=== PATIENT | female | born 1945 | race Caucasian/White ===

== ENCOUNTER 2018-07-02 16:42 | Inpatient (IN) | payer OTHER, MEDICAID ==
[~2018-07-02] VITALS: Ht 154.9 cm; Wt 67.6 kg
--- NOTE | 2018-07-02 18:02 | NUR ---
Direct admission note From home alert/oriented x4 ambulatory with a diagnosis of URINARY TRACT INFECTION, oriented to room , safety , verbalized understanding. Addendum: 07/02/18 at 1901 by Natty Dean RN Patient has episode of forgetfulness,oriented to herself , keep on saying shes in the hospital because of the granddaughter.
--- NOTE | 2018-07-02 18:15 | NUR ---
NOTES PATIENT SITTING ON BED. PATIENT IS VERY CONFUSED AND FORGETFUL. NO ACUTE DISTRESS. NO SOB. RESPIRATION EVEN AND UNLABORED. SKIN WARM AND DRY TO TOUCH. PATIENT CONT TO WANDER IN ROOM STATING SHE'S HERE FOR HER GRANDDAUGHTER. CONT TO REORIENT PATIENT TO ROOM, BED AND CALL LIGHT. GRAND DAUGHTER AT BEDSIDE. ALL NEEDS MET. CALL LIGHT IN REACH. CONT TO MONITOR.
[2018-07-02 18:22] VITALS: BP_SYST 145
[2018-07-02] MEDS ORDERED: DICL50TA7 PO (18:36)
[2018-07-02] MEDS ORDERED: OXYB10TA4 PO (18:36)
[2018-07-02] MEDS ORDERED: PRO10 PO (18:36)
[2018-07-02] MEDS ORDERED: DOCU-144 PO (18:36)
[2018-07-02] MEDS ORDERED: FOLI-43 PO (18:36)
[2018-07-02] MEDS ORDERED: ACET-73 PO (18:36)
[2018-07-02] MEDS ORDERED: MEMA10TA PO (18:36)
[2018-07-02] MEDS ORDERED: CALCIUM/D3 PO (18:36)
[2018-07-02] MEDS ORDERED: LORA-258 PO (18:36)
--- NOTE | 2018-07-02 18:44 | NUR ---
DR.KADHIUM STARR, ADMIT NURSE, SPOKE TO AND MADE AWARE OF PATIENT'S ADMIT. WILL COME SEE PATIENT.
--- NOTE | 2018-07-02 18:55 | NUR ---
CLOSING NOTE PATIENT IS CONFUSED AND TRIES TO WANDER OFF FROM ROOM. GRANDDAUGHTER STATED THAT PATIENT USE TO ISOLATE HERSELF IN HER ROOM AWAY FROM OTHERS, BUT NOW THE FAMILY MAKES SURE THERE IS ALWAYS SOMEONE WITH THE PATIENT AT ALL TIMES. PATIENT DENIES ATTEMPTING TO INJURE OR HARM SELF IN ANY WAY. CHARGE NURSE MADE AWARE. GRAND DAUGHTER AGREES TO STAY TONIGHT TO HELP PATIENT COOPERATE WITH STAFF. ALL NEEDS MET. CALL LIGHT IN REACH. WILL ENDORSE TO ONCOMING NURSE.
[2018-07-02 19:19] LABS: ANION GAP 6 (5-15); BASOPHILS # (AUTO) 0.1 K/uL (0.0-0.2); BASOPHILS % (AUTO) 0.8 % (0.0-2.0); CALCIUM 8.9 mg/dL (8.4-11.0); CHLORIDE 106 mmol/L (98-107); CREATININE 0.96 mg/dL (0.55-1.30); EOSINOPHILS # (AUTO) 0.2 K/uL (0.0-0.4); EOSINOPHILS % (AUTO) 2.4 % (0.0-4.0); GLUCOSE 99 mg/dL (70-99); HEMATOCRIT 38.5 % (36-48); HEMOGLOBIN 12.9 g/dL (12.0-16.0); LYMPHOCYTES # (AUTO) 2.5 K/uL (1.0-5.5); LYMPHOCYTES % (AUTO) 31.3 % (20.5-51.5); MEAN CORPUSCULAR HEMOGLOBIN 28 pg (27-31); MEAN CORPUSCULAR HGB CONC 34 % (32-36); MEAN CORPUSCULAR VOLUME 84 fL (79.0-98.0); MONOCYTES # (AUTO) 0.7 K/uL (0.0-1.0); MONOCYTES % (AUTO) 9.1 % (1.7-9.3); NEUTROPHILS # (AUTO) 4.4 K/uL (1.8-7.7); NEUTROPHILS % (AUTO) 56.4 % (40.0-70.0); PLATELET COUNT (AUTO) 281 K/uL (130-430); POTASSIUM 3.8 mmol/L (3.5-5.1); RED BLOOD CELL COUNT(AUTO) 4.59 MIL/uL (4.2-6.2); RED CELL DISTRIBUTION WIDTH 13.2 % (9.0-15.0); SODIUM SERUM 139 mmol/L (136-145); UREA NITROGEN, BLOOD 21 mg/dL (8-21); WHITE BLOOD COUNT (AUTO) 7.9 K/uL (4.8-10.8)
[2018-07-02 19:25] LABS: ALANINE AMINOTRANSFERASE 52 U/L (12-78); ALBUMIN 3.5 g/dL (3.4-4.8); ASPARTATE AMINOTRANSFERASE 36 U/L (10-37); TOTAL BILIRUBIN 0.6 mg/dL (0.0-1.0)
--- NOTE | 2018-07-02 19:45 | NUR ---
OPENING NOTE RECEIVED PT AND REPORT FROM DAY SHIFT NURSE. PT IS SITTING UP AWAKE IN BED. PT ON ROOM AIR. NO IV IN PLACE. GRAND DAUGHTER AT BEDSIDE. PT IS CONFUSED AT THIS TIME. FALL AND SAFETY PRECAUTIONS IN PLACE. BED LOCKED IN LOWEST POSITION. BED ALARM ON. CALL LIGHT WITH PT. WILL CONTINUE TO MONITOR.
[2018-07-02 20:00] VITALS: BP_SYST 145
--- NOTE | 2018-07-02 20:50 | NUR ---
ROUNDING NOTE PT STANDING, ATTEMPTING TO LEAVE. FAMILY AND NURSE REORIENTING PT. VITAL SIGNS OBTAINED. PROVIDED PT WITH BEVERAGE. ENCOURAGE PT AND FAMILY TO OBTAIN URINE SPECIMEN. PREVIOUS SPECIMEN WAS NOT OBTAINED IN HAT. WILL RE ATTEMPT.
[2018-07-02 22:08] LABS: BILIRUBIN,URINE NEGATIVE (NEGATIVE); BLOOD, URINE NEGATIVE (NEGATIVE); CLARITY/URINE CLEAR (CLEAR); COLOR,URINE YELLOW (YELLOW); GLUCOSE,URINE NEGATIVE (NEGATIVE); KETONES,URINE NEGATIVE (NEGATIVE); LEUKOCYTE ESTERASE ,URINE NEGATIVE (NEGATIVE); NITRITE, URINE NEGATIVE (NEGATIVE); PH,URINE 5.5 (5.0-8.0); PROTEIN URINE NEGATIVE (NEGATIVE); UROBILINOGEN,URINE 0.2 (0.2-1.0)
[2018-07-02] MEDS ORDERED: CEFEPIME 1 GM/VIAL (MAXIPIME) ONE (23:03)
[2018-07-02] MEDS: KCL 20 mEq in 0.45% NS 1000 mL 1,000 ML IV SCH (23:04)
[2018-07-02] MEDS: CEFEPIME 1 GM in D5W 50 ML IV SCH (23:04)
--- NOTE | 2018-07-02 23:04 | NUR ---
MEDICATION ADMINISTRATION ADMINISTERED MEDICATION PER ORDERS. PT RESTING IN BED. FAMILY AT BEDSIDE. BED ALARM ON. CALL LIGHT WITH PT.
[2018-07-02] MEDS: NORMAL SALINE 5 ML DISP.SYRIN IVF SCH (23:05)
[2018-07-03] MEDS ORDERED: ACETAMINOPHEN 500 MG TABLET PO SCH
[2018-07-03 00:36] VITALS: BP_SYST 156
--- NOTE | 2018-07-03 01:40 | NUR ---
ROUNDING NOTE PT RESTING IN BED. FAMILY AT BEDSIDE. BED ALARM ON. NO S/S OF DISTRESS OR DISCOMFORT. CALL LIGHT WITH PT. WILL CONTINUE TO MONITOR.
--- NOTE | 2018-07-03 02:40 | NUR ---
ROUNDING NOTE PT IS SLEEPING IN BED. NO S/S OF ACUTE DISTRESS. FAMILY IS AT BEDSIDE. WILL CONTINUE TO MONITOR.
--- NOTE | 2018-07-03 04:15 | NUR ---
ROUNDING NOTE PT RESTING IN BED. NO S/S OF ACUTE DISTRESS. WILL CONTINUE TO MONITOR. FAMILY REMAINS AT BEDSIDE.
[2018-07-03] MEDS: NORMAL SALINE 5 ML DISP.SYRIN IVF SCH ×3 (05:56→21:07)
--- NOTE | 2018-07-03 05:56 | NUR ---
ROUNDING NOTE PT RESTING IN BED. NO NEEDS AT THIS TIME. INFORMED PT ABOUT BREAKFAST. RECEIVED NEW ID BAND FOR PT. WILL CONTINUE TO MONITOR.
--- NOTE | 2018-07-03 06:38 | NUR ---
CLOSING NOTE WILL ENDORSE CARE AND REPORT TO DAY SHIFT NURSE. PT IS RESTING IN BED AT THIS TIME. NO S/S OF DISTRESS OR DISCOMFORT. ALL NEEDS MET THROUGHOUT SHIFT. PT IN STABLE CONDITION. NO SIGNIFICANT CHANGES TO NOTE DURING SHIFT. CALL LIGHT WITH PT. FAMILY AT BEDSIDE. WILL CONTINUE TO MONITOR.
--- NOTE | 2018-07-03 07:41 | NUR ---
PT GIVEN MOTRIN FOR PAIN OF 02/20. Addendum: 07/03/18 at 1243 by Warner Delaney RN PLEASE DISREGARD THIS PT'S NOTES: WRONG ENTRY.
--- NOTE | 2018-07-03 07:58 | NUR ---
OPENING NOTES, SEEN PT IN ROOM, PT JUST AMBULATED FROM BATHROOM WITH THE IV POLE. PT'S GRANDDAUGHTER WITH PT. PT DENIES PAIN, NO SOB, NO RESP DISTRESS. PT ASSISTED TO BED, CALL LIGHT IN REACH, BED IN LOW POSITION. WILL CONT TO MNITOR,
[2018-07-03 08:00] VITALS: BP_SYST 102
[2018-07-03] MEDS ORDERED: OXYBUTYNIN CHLORIDE 5 MG XL TAB PO SCH (09:00)
[2018-07-03] MEDS: DOCUSATE SODIUM 100 MG/10 ML UDC PO SCH (09:20)
[2018-07-03] MEDS: FLUoxetine HCL 10 MG CAPSULE (PROzac) PO SCH (09:20)
[2018-07-03] MEDS: MEMANTINE HCL 5 MG TABLET PO SCH (09:21)
[2018-07-03] MEDS: ENOXAPARIN SODIUM 40 MG/0.4 ML SYRINGE SUBCUT SCH (09:21)
[2018-07-03] MEDS: FOLIC ACID 1 MG TABLET PO SCH (09:21)
[2018-07-03] MEDS ORDERED: OXYBUTYNIN CHLORIDE 5 MG TABLET PO ONE (09:45)
[2018-07-03] MEDS: CEFEPIME 1 GM in D5W 50 ML IV SCH ×2 (10:41→20:44)
[2018-07-03 12:22] VITALS: BP_SYST 156
--- NOTE | 2018-07-03 12:41 | NUR ---
PT'S IV SITE SWOLLEN . IV ACCESS REMOVED. WILL START NEW IV. WARM COMPRESS APPLIED.
[2018-07-03] MEDS: KCL 20 mEq in 0.45% NS 1000 mL 1,000 ML IV SCH (16:01)
--- NOTE | 2018-07-03 16:14 | NUR ---
PT IN BED, PT RIPPING HER IV OFF AGAIN. TOLD PT NOT TO PULL OUT THE IV BECAUSE SHE NEEDS THE IF FLUIDS AND WE NEED IT FOR IV ANTIBIOTICS. PT'S GRAND DAUGHTER AT BED SIDE. WRAPPED IV ACCESS AND IV SITE WITH USHA WRAP.
[2018-07-03 16:33] VITALS: BP_SYST 119
--- NOTE | 2018-07-03 18:37 | NUR ---
CLOSING NOTES, PT HAS BEEN STABLE THE WHOLE SHIFT, PT AAOX2 WITH PERIODS OF CONFUSION. GRANSD DAUGHTER STAYED WITH PATIENT AND HAS BEEN HELPFUL TO PATIENT. IV ACCESS ON R. FA INTACT AND PATENT IV FLUIDS INFUSING WELL. PT HAS NOT COMPLAIN OF PAIN, NO SOB, NO RESP DISTRESS. WILL ENDORSE TO NIGHT RN.
[2018-07-03 19:20] VITALS: BP_SYST 140
--- NOTE | 2018-07-03 19:20 | NUR ---
OPENING NOTE RECEIVED PT ENDORSEMENT REPORT FROM DAY SHIFT NURSE VLADISLAV AT BEDSIDE. PT IS AOX1, PT RESTING IN BED WITH EYES OPEN. PT'S GRANDDAUGHTER AT BEDSIDE. CHEST RISE EVEN AND UNLABORED. NO RESPIRATORY DISTRESS NOTED. NO COMPLAINTS OF PAIN AT THIS TIME. PT'S IV ON RIGHT FA 22G, IV DRY AND INTACT. IVF INFUSING WELL. PT ABLE TO AMBULATE WITH ASSISTANCE, PT AND FAMILY EDUCATED ON SAFETY, PT VERBALIZED UNDERSTANDING. ORIENTED PT TO HOSPITAL ROOM, PT VERBALIZED UNDERSTANDING. INSTRUCTED PT AND FAMILY HOW TO USE CALL LIGHT AND ROOM PHONE. INSTRUCTED PT AND FAMILY TO USE CALL LIGHT TO CALL FOR ASSISTANCE, PT AND FAMILY VERBALIZED UNDERSTANDING. SAFETY MEASURES IN PLACE, PT'S BED IN LOWEST POSITION, BED BRAKES ON, SIDE RAILS UP X3, BED ALARM ON, CALL LIGHT WITHIN REACH, BED SIDE TABLE WITHIN REACH. NO NEEDS AT THIS TIME. WILL CONTINUE WITH POC.
[2018-07-03] MEDS: OXYBUTYNIN CHLORIDE 5 MG TABLET PO SCH (20:44)
--- NOTE | 2018-07-03 20:50 | NUR ---
RN ROUNDS PT RESTING IN BED WITH EYES OPEN. PT'S GRANDDAUGHTER AT BEDSIDE. CHEST RISE EVEN AND UNLABORED. NO RESPIRATORY DISTRESS NOTED. NO COMPLAINTS OF PAIN AT THIS TIME. IVF INFUSING WELL. VITAL SIGNS WNL. SCHEDULED MEDICATIONS ADMINISTERED ORDERED. PT TOLERATED MEDICATIONS WELL. NO OTHER NEEDS AT THIS TIME. SAFETY MEASURES IN PLACE, PT'S BED IN LOWEST POSITION, BED BRAKES ON, SIDE RAILS UP X3, BED ALARM ON, CALL LIGHT WITHIN REACH, BED SIDE TABLE WITHIN REACH. NO NEEDS AT THIS TIME. WILL CONTINUE WITH POC.
--- NOTE | 2018-07-03 21:10 | NUR ---
RN ROUNDS PT RESTING IN BED WITH EYES OPEN. PT'S GRANDDAUGHTER AT BEDSIDE. CHEST RISE EVEN AND UNLABORED. NO RESPIRATORY DISTRESS NOTED. NO COMPLAINTS OF PAIN AT THIS TIME. IVF INFUSING WELL. SALINE FLUSH 5 ML ADMINISTERED ORDERED. PT TOLERATED WELL. SAFETY MEASURES IN PLACE, PT'S BED IN LOWEST POSITION, BED BRAKES ON, SIDE RAILS UP X3, BED ALARM ON, CALL LIGHT WITHIN REACH, BED SIDE TABLE WITHIN REACH. NO NEEDS AT THIS TIME. WILL CONTINUE WITH POC.
--- NOTE | 2018-07-03 23:45 | NUR ---
RN ROUNDS PT RESTING IN BED WITH EYES OPEN. PT'S GRANDDAUGHTER AT BEDSIDE. CHEST RISE EVEN AND UNLABORED. NO RESPIRATORY DISTRESS NOTED. NO COMPLAINTS OF PAIN AT THIS TIME. IVF INFUSING WELL. SAFETY MEASURES IN PLACE, PT'S BED IN LOWEST POSITION, BED BRAKES ON, SIDE RAILS UP X3, BED ALARM ON, CALL LIGHT WITHIN REACH, BED SIDE TABLE WITHIN REACH. NO NEEDS AT THIS TIME. WILL CONTINUE WITH POC.
[2018-07-04 00:18] VITALS: BP_SYST 169
--- NOTE | 2018-07-04 01:42 | NUR ---
RN ROUNDS PT RESTING IN BED WITH EYES CLOSED. PT'S GRANDDAUGHTER AT BEDSIDE. CHEST RISE EVEN AND UNLABORED. NO RESPIRATORY DISTRESS NOTED. NO COMPLAINTS OF PAIN AT THIS TIME. NO S/S OF PAIN NOTED. IVF INFUSING WELL. SAFETY MEASURES IN PLACE, PT'S BED IN LOWEST POSITION, BED BRAKES ON, SIDE RAILS UP X3, BED ALARM ON, CALL LIGHT WITHIN REACH, BED SIDE TABLE WITHIN REACH. NO NEEDS AT THIS TIME. WILL CONTINUE WITH POC.
[2018-07-04] MEDS: NORMAL SALINE 5 ML DISP.SYRIN IVF SCH ×3 (05:40→21:09)
--- NOTE | 2018-07-04 06:05 | NUR ---
RN ROUNDS PT RESTING IN BED WITH EYES CLOSED. PT'S GRANDDAUGHTER AT BEDSIDE. CHEST RISE EVEN AND UNLABORED. NO RESPIRATORY DISTRESS NOTED. PT EASILY AWAKEN. NO COMPLAINTS OF PAIN AT THIS TIME. NO S/S OF PAIN NOTED. IVF INFUSING WELL. SCHEDULED SALINE FLUSH ADMINISTERED ORDERED PT TOLERATED WELL. SAFETY MEASURES IN PLACE, PT'S BED IN LOWEST POSITION, BED BRAKES ON, SIDE RAILS UP X3, BED ALARM ON, CALL LIGHT WITHIN REACH, BED SIDE TABLE WITHIN REACH. NO NEEDS AT THIS TIME. WILL CONTINUE WITH POC.
--- NOTE | 2018-07-04 06:43 | NUR ---
CLOSING NOTE WILL ENDORSE PT REPORT TO DAY SHIFT NURSE AT BEDSIDE. PT IS AOX1, PT RESTING IN BED WITH EYES CLOSED, PT EASILY AWAKEN. PT'S GRANDDAUGHTER AT BEDSIDE. CHEST RISE EVEN AND UNLABORED. NO RESPIRATORY DISTRESS NOTED THROUGHOUT SHIFT. NO COMPLAINTS OF PAIN THROUGHOUT SHIFT OR AT THIS TIME. IVF INFUSING WELL. PT ABLE TO AMBULATE WITH ASSISTANCE, PT AND FAMILY EDUCATED ON SAFETY, PT AND FAMILY VERBALIZED UNDERSTANDING. PT'S NEEDS MET THROUGHOUT SHIFT. ALL SCHEDULED MEDICATIONS ADMINISTERED ORDERED. NO NEEDS AT THIS TIME. SAFETY MEASURES IN PLACE, PT'S BED IN LOWEST POSITION, BED BRAKES ON, SIDE RAILS UP X3, BED ALARM ON, CALL LIGHT WITHIN REACH, BED SIDE TABLE WITHIN REACH. NO NEEDS AT THIS TIME. WILL CONTINUE WITH POC.
--- NOTE | 2018-07-04 07:50 | NUR ---
OPENING NOTES, PT IN BED, EATING BREAKFAST WITH GRAND DAUGHTER AT BEDSIDE, DENIES PAIN, NO SOB, NO RESP DISTRESS. PT IS AFEBRILE. PT IS AAOX1. REORIENTED PT TO DATE, PLACE AND EVENTS. PT HAS NO IV ACCESS AT THIS TIME, PT PULLED OUT IV AT THE VERY START OF THE SHIFT. SAFETY PRECAUTION IN PLACE , CALL LIGHT IN REACH, BED IN LOW POSITION. ENCOURAGED PT TO CALL FOR ASSIST AND PAIN MEDS AND ANY CONCERNS. WILL CONT TO MONITOR.
[2018-07-04 08:02] VITALS: BP_SYST 149
[2018-07-04] MEDS: FLUoxetine HCL 10 MG CAPSULE (PROzac) PO SCH (09:43)
[2018-07-04] MEDS: FOLIC ACID 1 MG TABLET PO SCH (09:43)
[2018-07-04] MEDS: OXYBUTYNIN CHLORIDE 5 MG TABLET PO SCH ×2 (09:45→20:29)
[2018-07-04] MEDS: DOCUSATE SODIUM 100 MG/10 ML UDC PO SCH (09:45)
[2018-07-04] MEDS: MEMANTINE HCL 5 MG TABLET PO SCH (09:49)
[2018-07-04] MEDS: ENOXAPARIN SODIUM 40 MG/0.4 ML SYRINGE SUBCUT SCH (09:50)
[2018-07-04] MEDS: CEFEPIME 1 GM in D5W 50 ML IV SCH ×2 (10:44→20:29)
[2018-07-04] MEDS: KCL 20 mEq in 0.45% NS 1000 mL 1,000 ML IV SCH (11:07)
[2018-07-04 12:08] VITALS: BP_SYST 129
--- NOTE | 2018-07-04 13:13 | NUR ---
Patient was seen for Initial Evaluation. She is safe to ambulate with the nursing staff ad ning with stand by assistance for safety. No further skilled Physical Therapy is needed at this time. Patient's caregiver expresses being overwhelmed with caring for the patient by herself. She said that she has received SNF/Board and Care recommendation.
--- NOTE | 2018-07-04 16:06 | NUR ---
DC Planning: Per Dr. Paz's recommendation to transfer pt. to [facility] unit. -- TITI Schmidt made aware.
[2018-07-04 16:23] VITALS: BP_SYST 136
--- NOTE | 2018-07-04 16:33 | NUR ---
Discharge Planning: DIRECTOR HAIR has faxed pt's information to [facility] ( [phone]) for review for SNF placement.
--- NOTE | 2018-07-04 17:00 | NUR ---
[facility] CALLED AND PT WILL HAVE AVAILABLE ROOM IN AM.
--- NOTE | 2018-07-04 19:22 | NUR ---
CLOSING NOTES, ENDORSED TO NIGHT RN. WHITE. PT HAS BEEN STABLE , ALL MEDS OFFERED AND TAKEN BY PT. PT STILL CONFUSED AND PULLED OUT IV X1 TODAY. NEW IV STARTED.
--- NOTE | 2018-07-04 19:30 | NUR ---
OPENING NOTE RECEIVED PT AND REPORT FROM DAY SHIFT. PT IS SITTING UP AWAKE IN CHAIR. PT SPEAKS [place]EN[place] AND IS ABLE TO VERBALIZE NEEDS. PT DENIES PAIN AT THIS TIME. FAMILY AT BEDSIDE. IV IS INTACT AND RUNNING IVF. PT ON ROOM AIR. FALL AND SAFETY PRECAUTIONS IN PLACE. BED LOCKED IN LOWEST POSITION. BED ALARM ON. CALL LIGHT WITH PT. WILL CONTINUE TO MONITOR
[2018-07-04 20:00] VITALS: BP_SYST 157
--- NOTE | 2018-07-04 20:29 | NUR ---
MEDICATION ADMINISTRATION/ REFUSAL/DO NOT DISTURB ADMINISTERED MEDICATION PER ORDERS. FAMILY STATES THEY DO NOT WANT TO BE DISTURBED FOR THE REST OF THE NIGHT. AND FAMILY REFUSES IVF AND VITALS FOR REMAINDER OF NIGHT. REFUSAL DESPITE EDUCATION GIVEN. WILL CONTINUE TO MONITOR PT.
--- NOTE | 2018-07-04 22:45 | NUR ---
ROUNDING NOTE PT IS RESTING IN BED. NO S/S OF DISTRESS. FAMILY REMAINS AT BEDSIDE. BED ALARM IS ON. WILL CONTINUE TO MONITOR.
--- NOTE | 2018-07-05 00:15 | NUR ---
ROUNDING NOTE PT SLEEPING. NO S/S OF ACUTE DISTRESS. CALL LIGHT WITH PT. FAMILY AT BEDSIDE. WILL CONTINUE TO MONITOR.
--- NOTE | 2018-07-05 01:56 | NUR ---
ROUNDING NOTE PT SLEEPING. NO S/S OF DISTRESS OR DISCOMFORT. FAMILY SLEEPING AT BEDSIDE. BED ALARM ON. CALL LIGHT WITH PT.
--- NOTE | 2018-07-05 03:23 | NUR ---
ROUNDING NOTE PT SLEEPING AT THIS TIME. NO S/S OF DISTRESS OR DISCOMFORT. CALL LIGHT WITH PT. FAMILY AT BEDSIDE.
[2018-07-05] MEDS: KCL 20 mEq in 0.45% NS 1000 mL 1,000 ML IV SCH (04:20)
--- NOTE | 2018-07-05 05:08 | NUR ---
ROUNDING NOTE PT SLEEPING IN BED. FAMILY AT BEDSIDE. NO S/S OF DISTRESS OR DISCOMFORT. CALL LIGHT WITH PT. WILL CONTINUE TO MONITOR.
[2018-07-05] MEDS: NORMAL SALINE 5 ML DISP.SYRIN IVF SCH (05:14)
--- NOTE | 2018-07-05 06:20 | NUR ---
IV PULLED OUT/ REFUSAL PT HAS PULLED OUT IV. GRAND DAUGHTER IS REFUSING INSERTION ON ANOTHER IV AT THIS TIME. PATIENT HAS URINATED AND GRAND DAUGHTER ALSO STATES THAT PATIENT CAN BE CHANGED LATER AND NOT AT THIS TIME. WILL CONTINUE TO MONITOR.
--- NOTE | 2018-07-05 06:37 | NUR ---
CLOSING NOTE WILL ENDORSE CARE AND REPORT TO DAY SHIFT NURSE. PT IS AWAKE IN BED AND RESTING. NO PAIN AT THIS TIME. GRAND DAUGHTER AT BEDSIDE. ALL NEEDS MET THROUGHOUT SHIFT. PT IN STABLE CONDITION. WILL ENDORSE ANY CHANGES DURING SHIFT, WELL REFUSALS BY GRAND DAUGHTER. CALL LIGHT WITH PT. WILL CONTINUE TO MONITOR.
--- NOTE | 2018-07-05 07:25 | NUR ---
Opening note pt and report received from NOC shift RN, no s/s of SOB or distress, no c/o pain or discomfort. Pt w/o IV access at this time, pt and family refused IV last night. Bed and safety check completed. Bed in loc locked position with bed alarm on and call light within reach. Pt AAOx2. Family at bedside and agrees to use call light for assistance.
[2018-07-05 08:05] VITALS: BP_SYST 142
[2018-07-05] MEDS: OXYBUTYNIN CHLORIDE 5 MG TABLET PO SCH (08:27)
[2018-07-05] MEDS: MEMANTINE HCL 5 MG TABLET PO SCH (08:27)
[2018-07-05] MEDS: DOCUSATE SODIUM 100 MG/10 ML UDC PO SCH (08:27)
[2018-07-05] MEDS: FOLIC ACID 1 MG TABLET PO SCH (08:27)
[2018-07-05] MEDS: FLUoxetine HCL 10 MG CAPSULE (PROzac) PO SCH (08:27)
[2018-07-05] MEDS: ENOXAPARIN SODIUM 40 MG/0.4 ML SYRINGE SUBCUT SCH (08:28)
[2018-07-05] MEDS: CEFEPIME 1 GM in D5W 50 ML IV SCH (08:49)
--- NOTE | 2018-07-05 10:00 | NUR ---
Rounding Pt resting in bed, talking with family at bedside, IV restarted and IV fluids infusing. Bed alarm on and call light within reach
--- NOTE | 2018-07-05 10:02 | NUR ---
Nutrition Update Saleem Scale 18 noted. Pt admitted for UTI. Diet: mechanical soft BMI: 28.2 kg/m2 RD to follow per nutrition care standards.
--- NOTE | 2018-07-05 12:00 | NUR ---
Rounding pt eating lunch with family at bedside. No complaints or issues at this time, awaiting placement at SNF for possible discharge later today.
[2018-07-05 12:02] VITALS: BP_SYST 178
[2018-07-05] MEDS ORDERED: LOSARTAN POTASSIUM 50 MG TABLET (COZAAR) PO ONE (12:30)
--- NOTE | 2018-07-05 14:00 | NUR ---
Rounding Pt resting in bed, family remains at bed side, no s/s of SOB or distress, safety and bed check completed
[2018-07-05 15:37] VITALS: BP_SYST 140
--- NOTE | 2018-07-05 16:30 | NUR ---
Rounding Reviewed discharge plan with family and pt, family signed transfer authorization and awaiting transfer at [id number]
--- NOTE | 2018-07-05 17:30 | NUR ---
Discharge note Pt ambulatory, w/ no s/s of SOB or distress, no c/o pain or discomfort. Pt remains AAOx2, confused about time and event. Family remains with her at bedside. Report given to Payton CLARK at [facility]. Reviewed discharge packet and transfer authorization, both signed by pt grand daughter. IV removed per request of receiving facility.
[2018-07-06] MEDS ORDERED: LOSARTAN POTASSIUM 50 MG TABLET (COZAAR) PO SCH (09:00)
== END 2018-07-05 17:15 | DRG 689 ==
LOC: SMU 17:57
PROVIDERS: ADMIT Family Medicine; ATTEND Family Medicine
DX: N39.0 Urinary tract infection, site not specified (principal); G93.41 Metabolic encephalopathy; I10 Essential (primary) hypertension; M19.90 Unspecified osteoarthritis, unspecified site; Z87.820 Personal history of traumatic brain injury; Z79.899 Other long term (current) drug therapy
CPT/HCPCS: 36415; 70450-TC; 80053; 81003; 85025; J0692; J1650; J3480; J7060

== ENCOUNTER 2020-09-14 19:23 | Inpatient (IN) | payer OTHER, MEDICAID, SELFPAY ==
[~2020-09-14] VITALS: Ht 157.5 cm; Wt 68.0 kg
[~2020-09-14 19:23] MED LIST: ACET-73 PO; CALCIUM/D3 PO; DOCU-144 PO; FOLI-43 PO; MEMA10TA PO; OXYB10TA4 PO; PRO10 PO
[2020-09-14 21:39] VITALS: BP_SYST 140
--- NOTE | 2020-09-14 21:45 | NUR ---
Patient triaged ,pt on ambulance. VSS and patient appears in no acute distress at this time. Accompanied by BLS , awaiting available bed, and MD notified of need for MSE.
--- NOTE | 2020-09-14 23:14 | NUR ---
Patient to ER bed 06 to gown for evaluation. Side rails up.
--- NOTE | 2020-09-14 23:22 | NUR ---
PT BIB BLS FROM [facility] C/O OF FEVER, WEAKNESS, DECREASED APPETITE X3 DAYS, AND DEHYDRATION. PER EMS, PATIENT HAS NOT BEEN UP AND WALKING AROUND IN ROOM SHE USUALLY DOES. PT TEMPERATURE SNF ON 09/14/2020 IN THE MORNING WAS 101.2 AND PT WAS GIVEN TYLENOL, DOSE UNKNOWN. PT DENIES SOB, CP.
--- NOTE | 2020-09-15 | NUR ---
temperature taken orally, 98.7. aware.
--- NOTE | 2020-09-15 00:07 | NUR ---
# 20 gauge angiocath placed to RAC. Use of asceptic technique. Opsite placed over site. Blood return noted. Blood, LACTIC for lab drawn from site. Flushed with 10 cc of normal saline. No evidence of infiltration noted. Patient tolerated well.
--- NOTE | 2020-09-15 00:16 | NUR ---
ER Dr. Armendariz at bedside examining patient.
[2020-09-15 00:36] LABS: BASOPHILS % (AUTO) 0.2 % (0.0-2.0); EOSINOPHILS % (AUTO) 0.1 % (0.0-4.0); HEMATOCRIT 37.7 % (36-48); HEMOGLOBIN 12.3 g/dL (12.0-16.0); LYMPHOCYTES # (AUTO) 2.2 K/uL (1.0-5.5); MEAN CORPUSCULAR HEMOGLOBIN 27 pg (27-31); MEAN CORPUSCULAR HGB CONC 33 % (32-36); MEAN CORPUSCULAR VOLUME 82 fL (79.0-98.0); MONOCYTES % (AUTO) 12.9 % (1.7-9.3); NEUTROPHILS # (AUTO) 4.7 K/uL (1.8-7.7); NEUTROPHILS % (AUTO) 58.8 % (40.0-70.0); PLATELET COUNT (AUTO) 204 K/uL (130-430); RED BLOOD CELL COUNT(AUTO) 4.59 MIL/uL (4.2-6.2); RED CELL DISTRIBUTION WIDTH 14.8 % (9.0-15.0)
--- NOTE | 2020-09-15 00:40 | NUR ---
RESPIRATORY AT BEDSIDE FOR ABG.
[2020-09-15 00:49] LABS: ANION GAP 11 (5-15); CALCIUM 8.2 mg/dL (8.4-11.0); CHLORIDE 105 mmol/L (98-107); CREATININE 1.08 mg/dL (0.55-1.30); GLUCOSE 109 mg/dL (70-99); POTASSIUM 3.5 mmol/L (3.5-5.1); SODIUM SERUM 145 mmol/L (136-145); UREA NITROGEN, BLOOD 35 mg/dL (8-21)
[2020-09-15 00:53] LABS: C-REACTIVE PROTEIN QUANT 7.5 mg/dL (0-0.5)
[2020-09-15 01:01] LABS: ALANINE AMINOTRANSFERASE 85 U/L (12-78); ALBUMIN 3.3 g/dL (3.4-4.8); ASPARTATE AMINOTRANSFERASE 78 U/L (10-37); LACTATE DEHYDROGENASE 294 U/L (81-234); TOTAL BILIRUBIN 0.8 mg/dL (0.0-1.0)
--- NOTE | 2020-09-15 01:02 | NUR ---
PATIENT PLACED ON 2L NC PER MD ORDER. PT 02 SAT ON ROOM AIR IS 89-91%.
[2020-09-15 01:09] LABS: FIBRINOGEN 432 mg/dL (200-400)
--- NOTE | 2020-09-15 01:50 | NUR ---
LAB AT BEDSIDE DRAWING SECOND LACTIC.
[2020-09-15] MEDS ORDERED: cefTRIAXone 1 GM IVPB PREMIX 50 ML IV ONE ×2 (02:30→03:30)
[2020-09-15] MEDS ORDERED: AZITHROMYCIN 500 MG in NS 250 ML IV ONE (02:30)
--- NOTE | 2020-09-15 02:30 | NUR ---
RECEIVED ADMIT ORDERS FROM DR. SANTAMARIA.
--- NOTE | 2020-09-15 02:42 | NUR ---
Patient's code status is FULL CODE paperwork completed and placed in chart.
--- NOTE | 2020-09-15 02:45 | NUR ---
INFLUENZA AND PCR COVID 19 COLLECTED AND SENT TO LAB.
[2020-09-15] MEDS ORDERED: MEMA10TA PO (02:46)
[2020-09-15] MEDS ORDERED: LOSA50TA3 PO (02:46)
[2020-09-15] MEDS ORDERED: DITXL5 PO (02:50)
[2020-09-15] MEDS ORDERED: CRAN450T9 PO (02:50)
[2020-09-15] MEDS ORDERED: PARO10TA75 PO (02:50)
[2020-09-15] MEDS ORDERED: FLUO10TA PO (02:50)
--- NOTE | 2020-09-15 02:50 | NUR ---
Medication reconciliation completed with information provided by PATIENT LIST FROM SNF. Any prior medication reconciliation on file was reviewed and corrected.
--- NOTE | 2020-09-15 03:05 | NUR ---
# 16 FR In and Out catheter with use of sterile technique. Immediate return of 250 ml YELLOW urine noted. Urine sample collected and sent to lab. Pt tolerated procedure WELL.
[2020-09-15] MEDS ORDERED: AZITHROMYCIN 500 MG/VIAL (ZITHROMAX) IV ONE (03:23)
--- NOTE | 2020-09-15 04:16 | NUR ---
APatient will be admitted to care of [facility]. Admitted to TELE unit. Will go to room PENDING. Belongings list completed. Complete and up to date summary report printed. SBAR report to be given at bedside with opportunity for questions.
--- NOTE | 2020-09-15 04:40 | NUR ---
PT TRANSFERRED ONTO HOSPITAL BED, CLEANED & LINENS CHANGED, PLACED ON FACILITY SALES AND ADMIN. NO SIGNS OF ACUTE DISTRESS. WILL CONTINUE TO MONITOR.
[2020-09-15] MEDS ORDERED: KCL 20 mEq in D5/0.45NS 1000mL 1,000 ML IV ONE (04:55)
[2020-09-15] MEDS: POTASSIUM CHLORIDE 20 MEQ in D5/0.45 NS 1,000 ML IV SCH ×2 (05:19→16:13)
--- NOTE | 2020-09-15 05:23 | NUR ---
REPORT GIVEN TO AMBER PAGAN FOR CONTINUATION OF CARE.
[2020-09-15 05:24] LABS: BILIRUBIN,URINE NEGATIVE (NEGATIVE); BLOOD, URINE 3+ (NEGATIVE); CLARITY/URINE CLOUDY (CLEAR); COLOR,URINE YELLOW (YELLOW); GLUCOSE,URINE NEGATIVE (NEGATIVE); KETONES,URINE 1+ (NEGATIVE); LEUKOCYTE ESTERASE ,URINE 1+ (NEGATIVE); NITRITE, URINE POSITIVE (NEGATIVE); PROTEIN URINE 2+ (NEGATIVE); UROBILINOGEN,URINE 0.2 (0.2-1.0)
[2020-09-15 05:28] LABS: BACTERIA,URINE MANY /HPF (None Seen); WBC,URINE 20-50 /HPF (0-3)
--- NOTE | 2020-09-15 07:30 | NUR ---
REPORT FROM FEBRUARY AMBER
--- NOTE | 2020-09-15 07:40 | NUR ---
PT AWAKE AND WATCHING TV.
--- NOTE | 2020-09-15 08:25 | NUR ---
MARGARITO SHELLEY CALLED FOR UPDATE.
--- NOTE | 2020-09-15 08:45 | NUR ---
Patient will be admitted to care of DR SANTAMARIA. Admitted to TELE unit. Will go to room 133. Belongings list completed. Complete and up to date summary report printed. SBAR report to be given at bedside with opportunity for questions.
[2020-09-15 09:15] VITALS: BP_SYST 156
--- NOTE | 2020-09-15 09:15 | NUR ---
ADMISSION NOTES RECEIVED PT FROM [place] , WITH DIAGNOSIS OF BILAT PNA, UNDER THE CARE OF DR SANTAMARIA. CHIEF COMPLAIN OF FEVER, GEN WKNESS AND POOR APPETITE. SAFETY PRECAUTION IN PLACE, BED IN LOW POSITION. BED ALARM ON, CALL LIGHT IN REACH. ENCOURAGED PT TO CALL FOR ASSIST AND ANY CONCERNS. WILL CONT TO MONITOR.
[2020-09-15] MEDS: DEXAMETHASONE SOD PHOSPHATE 4 MG/ML VIAL IVP SCH (09:40)
[2020-09-15] MEDS ORDERED: ENOXAPARIN SODIUM 40 MG/0.4 ML SYRINGE ONE (09:49)
[2020-09-15] MEDS: ENOXAPARIN SODIUM 40 MG/0.4 ML SYRINGE SUBCUT SCH (09:50)
[2020-09-15 10:30] VITALS: BP_SYST 156
--- NOTE | 2020-09-15 10:40 | NUR ---
SPOKE WITH PT'S DAUGHTER MARGARITO SHELLEY TEL NO [phone], INFORMED HER OF ADMISSION OF HER MOM, PER MARGARITO PT IS DNR. DTR SPOKE WITH PT OVER THE PHONE.
[2020-09-15 12:00] VITALS: BP_SYST 99
--- NOTE | 2020-09-15 13:56 | NUR ---
DR SANTAMARIA HERE AND SEEN PT.
[2020-09-15 16:00] VITALS: BP_SYST 128
[2020-09-15] MEDS ORDERED: ACETAMINOPHEN 500 MG TABLET PO PRN (18:00)
[2020-09-15 18:04] VITALS: BP_SYST 147
--- NOTE | 2020-09-15 19:50 | NUR ---
Initial note: Received report from dayshift RN. Patient is awake in bed watching TV. No acute distress. Tolerating 2L NC, even and unlabored breathing. IV fluids infusing well, no infiltration. Call light with patient. Safety, fall, COVID iso precautions in place. Will continue with plan of care.
[2020-09-15 20:45] VITALS: BP_SYST 158
[2020-09-15] MEDS ORDERED: CRANBERRY FRUIT 500 MG PO SCH (21:00)
[2020-09-16 00:43] VITALS: BP_SYST 142
--- NOTE | 2020-09-16 01:48 | NUR ---
Sleeping: Patient is resting comfortably in bed, no acute distress, even and unlabored breathing on 2L NC. IV fluids infusing well. Call light with patient. Will continue to monitor.
[2020-09-16] MEDS: cefTRIAXone 1 GM IVPB PREMIX 50 ML IV SCH (02:21)
[2020-09-16] MEDS: POTASSIUM CHLORIDE 20 MEQ in D5/0.45 NS 1,000 ML IV SCH ×2 (05:32→20:55)
--- NOTE | 2020-09-16 06:20 | NUR ---
Closing note: Patient is asleep in bed. No acute distress. Tolerating 2L NC, even and unlabored breathing. IV fluids infusing well, no infiltration. All needs met. Call light with patient. Safety, fall, COVID iso precautions in place. Will endorse care to dayshift RN.
--- NOTE | 2020-09-16 07:10 | NUR ---
OPENING NOTE RECEIVED SBAR FROM NIGHT RN, PATIENT IN BED, RESPIRATIONS EVEN, NON LABORED, BED IN LOW AND LOCKED POSITION, CALL LIGHT WITHIN REACH, BED ALARM ON
[2020-09-16 08:00] VITALS: BP_SYST 160
--- NOTE | 2020-09-16 08:00 | NUR ---
nurse note obtained vs, administered medications, provided breakfast. Patient in bed, respirations even, non labored, bed in low and locked position, call light within reach, bed alarm on.
[2020-09-16] MEDS ORDERED: MEMANTINE HCL 5 MG TABLET PO SCH (09:00)
[2020-09-16] MEDS: ENOXAPARIN SODIUM 40 MG/0.4 ML SYRINGE SUBCUT SCH (09:00)
[2020-09-16] MEDS ORDERED: DOCUSATE SODIUM 100 MG CAPSULE PO SCH (09:00)
[2020-09-16] MEDS: DEXAMETHASONE SOD PHOSPHATE 4 MG/ML VIAL IVP SCH (09:00)
[2020-09-16] MEDS ORDERED: PARoxetine HCL 20 MG TABLET PO SCH (09:00)
--- NOTE | 2020-09-16 09:00 | NUR ---
nurse note patient incontinent of bladder, provided maryann care, changed linens and gown. Partial bed bath given. Repositioned patient, provided oral care, bed in low and locked position, call light within reach, bed alarm on
[2020-09-16] MEDS: FLUoxetine HCL 10 MG CAPSULE (PROzac) PO SCH (09:04)
[2020-09-16] MEDS: OXYBUTYNIN CHLORIDE 5 MG TABLET PO SCH ×2 (09:04→20:55)
[2020-09-16] MEDS: LOSARTAN POTASSIUM 50 MG TABLET (COZAAR) PO SCH (09:04)
[2020-09-16] MEDS: FOLIC ACID 1 MG TABLET PO SCH (09:04)
--- NOTE | 2020-09-16 11:00 | NUR ---
nurse note patient in bed, respirations even, non labored, bed in low and locked position call light within reach, bed alarm on
[2020-09-16 12:00] VITALS: BP_SYST 122
[2020-09-16] MEDS ORDERED: MEMANTINE HCL 5 MG TABLET PO ONE (13:00)
--- NOTE | 2020-09-16 13:00 | NUR ---
nurse note patient incontinent of bowel and bladder, provided maryann care, changed linens, repositioned patient, Patient removed IV, no bleeding, . provided patient with lunch, bed in low and locked position call light within reach, bed alarm on, denies any pain or discomfort
--- NOTE | 2020-09-16 13:49 | NUR ---
nurse note spoke with patients daughter Jaclyn, gave status update, daughter verbalized understanding, no further questions
--- NOTE | 2020-09-16 15:02 | NUR ---
NURSE NOTE PATIENT IN BED, EYES CLOSED, BED IN LOW AND LOCKED POSITION, CALL LIGHT WITHIN REACH, BED ALARM ON
[2020-09-16 16:00] VITALS: BP_SYST 122
--- NOTE | 2020-09-16 16:30 | NUR ---
iv reinsertion IV RE-INSERTION: Restarted on left AC. Successful after 2 attempts. Resumed IVF's as ordered. Will observe for any signs of infiltration. Patient incontinent of bowel and bladder, provided maryann care, changed linens. repositioned patient. denies any pain or discomfort.
--- NOTE | 2020-09-16 18:00 | NUR ---
nurse note patient removed IV, no bleeding, provided dinner, bed in low and locked position, call light within reach, bed alarm on
--- NOTE | 2020-09-16 19:08 | NUR ---
closing note provided sbar to night RN, patient in bed, respirations even, non labored, bed in low and locked position, call light within reach, bed alarm on. Endorsed care to night RN
--- NOTE | 2020-09-16 19:37 | NUR ---
Initial note: Received report from dayshift RN. Patient is awake in bed watching TV. No acute distress. Tolerating 2L NC, even and unlabored breathing. No IV site, will re-insert. Call light with patient. Safety, fall, COVID iso precautions in place. Will continue with plan of care.
[2020-09-16 20:00] VITALS: BP_SYST 100
--- NOTE | 2020-09-16 20:00 | NUR ---
Code status: Dr. Paz called and spoke with patient's daughter/POA Jaclyn Ryderummond to discuss patient's code status. Patient is a modified code: ACLS drugs and BIPAP only. Hospital code status form signed by MD and RN, placed in paper chart.
--- NOTE | 2020-09-16 20:28 | NUR ---
IV RE-INSERTION: Complaining of pain to IV site. Restarted on left AC, 20 gauge. Successful after 2 attempts. Resumed current IVF per MD order. Will observe for any signs of infiltration.
[2020-09-16] MEDS: MEMANTINE HCL 5 MG TABLET PO SCH (20:55)
[2020-09-17] VITALS: BP_SYST 114
[2020-09-17 00:10] VITALS: BP_SYST 178
[2020-09-17] MEDS: cefTRIAXone 1 GM IVPB PREMIX 50 ML IV SCH (03:42)
[2020-09-17 08:00] VITALS: BP_SYST 180
[2020-09-17] MEDS: ENOXAPARIN SODIUM 40 MG/0.4 ML SYRINGE SUBCUT SCH (09:20)
[2020-09-17] MEDS: DEXAMETHASONE SOD PHOSPHATE 4 MG/ML VIAL IVP SCH (09:20)
[2020-09-17] MEDS: FLUoxetine HCL 10 MG CAPSULE (PROzac) PO SCH (10:00)
[2020-09-17] MEDS: MEMANTINE HCL 5 MG TABLET PO SCH ×2 (10:20→21:25)
[2020-09-17] MEDS: OXYBUTYNIN CHLORIDE 5 MG TABLET PO SCH ×2 (10:20→21:25)
[2020-09-17] MEDS: FOLIC ACID 1 MG TABLET PO SCH (10:20)
[2020-09-17] MEDS: DOCUSATE SODIUM 100 MG/10 ML UDC PO SCH (10:20)
[2020-09-17] MEDS: LOSARTAN POTASSIUM 50 MG TABLET (COZAAR) PO SCH (10:20)
[2020-09-17] MEDS: POTASSIUM CHLORIDE 20 MEQ in D5/0.45 NS 1,000 ML IV SCH ×2 (10:30→21:30)
--- NOTE | 2020-09-17 10:51 | NUR ---
Nutrition Update Saleem Scale 16 noted. Pt admitted for bilateral pneumonia. Diet: mechanical soft BMI: 27.4 kg/m2 RD to follow per nutrition care standards.
[2020-09-17 12:00] VITALS: BP_SYST 142
[2020-09-17 16:00] VITALS: BP_SYST 150
--- NOTE | 2020-09-17 16:47 | NUR ---
CONSULTATION PAGED/CALLED Reason for Consultation: [] COVID Person Who was Notified: [] NAKIA Consulting Physician: [] DR HANSON International Student Advisor Specialty: [] ID Ordering Physician: [] DR MCKEE
--- NOTE | 2020-09-17 16:49 | NUR ---
CONSULTATION PAGED/CALLED Reason for Consultation: [] COVID Person Who was Notified: [] NAKIA Consulting Physician: [] DR RAMOS Programming Engineer Specialty: [ PULMO Ordering Physician: [] DR MCKEE
--- NOTE | 2020-09-17 20:01 | NUR ---
initial notes rec patient awake but confused. ivf infusing well on the l ac. no infiltration noted. resp easy and unlabored. no sob noted. bed to the lowest position and side rails up and locked. call light within reached and knows when to call for assistance.
[2020-09-17 21:00] VITALS: BP_SYST 149
[2020-09-17] MEDS ORDERED: HALOPERIDOL LACTATE 5 MG/ML VIAL IM PRN (22:15)
--- NOTE | 2020-09-18 00:09 | NUR ---
DR. MCKEE PAGED DR. MCKEE (COVERING FOR DR. SANTAMARIA) PAGED AT THIS TIME PER EXCHANGE, SPOKE TO MATRIX PLATER INVANZ. AWAITING MD CALL BACK.
[2020-09-18] MEDS ORDERED: ENALAPRILAT DIHYDRATE 1.25 MG/ML VIAL IVP PRN (00:30)
--- NOTE | 2020-09-18 00:30 | NUR ---
SPOKE WITH DR. RAMOS DURING HIS ROUNDS EARLIER, REPORTED ELEVATED BP AND BRADYCARDIA, MD ORDERED HYDRALAZINE 5MG IVP Q4H PRN FOR SBP GREATER THAN 150, AND VASOTEC 1.25MG IVP Q6H PRN FOR SBP GREATER THAN 150. ALSO SPOKE WITH DR. RAFI MD ORDERED FOR CARDIO CONSULT WITH DR. POWELL FOR ELEVATED BP AND BRADYCARDIA.
[2020-09-18] MEDS: hydrALAZINE HCL 20 MG/ML VIAL IVP PRN ×2 (00:50→01:50)
[2020-09-18] MEDS: cefTRIAXone 1 GM IVPB PREMIX 50 ML IV SCH (01:45)
[2020-09-18 01:50] VITALS: BP_SYST 126
--- NOTE | 2020-09-18 03:23 | NUR ---
DR. MCKEE PAGED DR. MCKEE (COVERING FOR DR. SANTAMARIA) PAGED AT THIS TIME PER EXCHANGE, SPOKE TO DIE MAINTENANCE INVANZ. AWAITING MD CALL BACK.
[2020-09-18 04:00] VITALS: BP_SYST 145
--- NOTE | 2020-09-18 05:39 | NUR ---
COMMUNICATION W/ Jose MENCHACA. Anam MENCHACA (COVERING FOR DR. SANTAMARIA) HAS PAGED BACK, IT WAS COMMUNICATED TO MD THAT PATIENT HAS BEEN DESATURATING BECAUSE SHE CONTINUOUSLY PULLS OFF HER NASAL CANNULA DESPITE EDUCATIONAL EFFORTS DUE TO COGNITIVE IMPAIRMENT. Anam MENCHACA HAS ORDERED BILATERAL WRIST RESTRAINTS. ORDER READ BACK, VERIFIED, AND ENTERED. RESTRAINTS WILL BE PLACED AND PATIENT WILL BE MONITORED CLOSELY.
[2020-09-18 08:00] VITALS: BP_SYST 187
[2020-09-18] MEDS ORDERED: *PPN PER PHARMACY XX PRN (08:00)
--- NOTE | 2020-09-18 08:00 | NUR ---
initial notes rec patient awake and confused with hob elevated. ivf infusing well on the l ac. no infiltration noted. with o2 at 2 liters via oximizer. resp easy and unlabored. no sob noted. bed to the lowest position and side rails up and locked. call light withn reached. with bilateral restraints and checked for circulation.
[2020-09-18 08:02] LABS: BASOPHILS % (AUTO) 0.3 % (0.0-2.0); EOSINOPHILS % (AUTO) 0.2 % (0.0-4.0); HEMATOCRIT 39.4 % (36-48); LYMPHOCYTES # (AUTO) 2.3 K/uL (1.0-5.5); LYMPHOCYTES % (AUTO) 23.9 % (20.5-51.5); MEAN CORPUSCULAR HEMOGLOBIN 27 pg (27-31); MEAN CORPUSCULAR HGB CONC 33 % (32-36); MEAN CORPUSCULAR VOLUME 81 fL (79.0-98.0); MONOCYTES % (AUTO) 10.6 % (1.7-9.3); NEUTROPHILS # (AUTO) 6.2 K/uL (1.8-7.7); PLATELET COUNT (AUTO) 261 K/uL (130-430); RED BLOOD CELL COUNT(AUTO) 4.86 MIL/uL (4.2-6.2); RED CELL DISTRIBUTION WIDTH 14.4 % (9.0-15.0); WHITE BLOOD COUNT (AUTO) 9.5 K/uL (4.8-10.8)
[2020-09-18 08:07] LABS: ALANINE AMINOTRANSFERASE 94 U/L (12-78); ALBUMIN 2.8 g/dL (3.4-4.8); ANION GAP 11 (5-15); ASPARTATE AMINOTRANSFERASE 61 U/L (10-37); CALCIUM 8.4 mg/dL (8.4-11.0); CHLORIDE 102 mmol/L (98-107); CREATININE 0.75 mg/dL (0.55-1.30); GLUCOSE 134 mg/dL (70-99); POTASSIUM 3.8 mmol/L (3.5-5.1); SODIUM SERUM 136 mmol/L (136-145); TOTAL BILIRUBIN 0.4 mg/dL (0.0-1.0); UREA NITROGEN, BLOOD 11 mg/dL (8-21)
[2020-09-18] MEDS ORDERED: ASCORBIC ACID 500 MG TABLET PO SCH (09:00)
[2020-09-18] MEDS: FLUoxetine HCL 10 MG CAPSULE (PROzac) PO SCH (09:30)
[2020-09-18] MEDS: OXYBUTYNIN CHLORIDE 5 MG TABLET PO SCH ×2 (09:30→21:00)
[2020-09-18] MEDS: DEXAMETHASONE SOD PHOSPHATE 4 MG/ML VIAL IVP SCH (09:30)
[2020-09-18] MEDS: MEMANTINE HCL 5 MG TABLET PO SCH ×2 (09:30→21:00)
[2020-09-18] MEDS: CHOLECALCIFEROL (VITAMIN D3) 2,000 UNIT TABLET PO SCH (09:30)
[2020-09-18] MEDS: DOCUSATE SODIUM 100 MG/10 ML UDC PO SCH (09:30)
[2020-09-18] MEDS: ENOXAPARIN SODIUM 40 MG/0.4 ML SYRINGE SUBCUT SCH ×2 (09:30→10:45)
[2020-09-18] MEDS: FOLIC ACID 1 MG TABLET PO SCH (09:30)
[2020-09-18] MEDS ORDERED: THEOPHYLLINE ANHYDROUS 200 MG TAB.SR.12H PO SCH (11:00)
[2020-09-18 12:00] VITALS: BP_SYST 142
[2020-09-18 16:00] VITALS: BP_SYST 158
--- NOTE | 2020-09-18 19:00 | NUR ---
closing notes pt resting comfortably. eating dinner at this time. bed to the lowest position and side rails up and locked. call light within reached. denies pain.
[2020-09-18 20:05] VITALS: BP_SYST 143
[2020-09-18] MEDS: ASCORBIC ACID 500 MG TABLET PO SCH (21:05)
[2020-09-19 00:05] VITALS: BP_SYST 149
[2020-09-19 02:15] VITALS: BP_SYST 163
[2020-09-19] MEDS: cefTRIAXone 1 GM IVPB PREMIX 50 ML IV SCH (02:15)
[2020-09-19] MEDS: hydrALAZINE HCL 20 MG/ML VIAL IVP PRN (02:30)
[2020-09-19 04:30] VITALS: BP_SYST 134
--- NOTE | 2020-09-19 06:20 | NUR ---
CLOSING NOTES Patient resting in bed, awake, breathing evenly and nonlabored on 2L of oxygen via oxymizer. Patient was on room air and O2 sat was 90-92%, but complained of SOB at 0215, placed on 2L of oxygen via oxymizer, O2 sat 90-94%. Patient continues to be on bilateral wrist restraints for attempting to pull of telemonitor, IV and oxygen. BP was elevated earlier and hydralazine was given at 0230. BP went down to 134/79 for the 0400 VS check. Hygiene care was done. Needs met throughout the shift. No s/s of distress at this time, no other needs at this time. Fall/safety/aspiration/isolation precautions, will endorse care to morning shift RN.
[2020-09-19 06:52] LABS: BASOPHILS % (AUTO) 0.3 % (0.0-2.0); EOSINOPHILS % (AUTO) 0.1 % (0.0-4.0); HEMATOCRIT 41.2 % (36-48); HEMOGLOBIN 13.5 g/dL (12.0-16.0); LYMPHOCYTES # (AUTO) 2.5 K/uL (1.0-5.5); MEAN CORPUSCULAR HEMOGLOBIN 27 pg (27-31); MEAN CORPUSCULAR HGB CONC 33 % (32-36); MEAN CORPUSCULAR VOLUME 81 fL (79.0-98.0); MONOCYTES # (AUTO) 1.2 K/uL (0.0-1.0); MONOCYTES % (AUTO) 9.7 % (1.7-9.3); NEUTROPHILS # (AUTO) 8.6 K/uL (1.8-7.7); NEUTROPHILS % (AUTO) 69.9 % (40.0-70.0); PLATELET COUNT (AUTO) 315 K/uL (130-430); RED BLOOD CELL COUNT(AUTO) 5.08 MIL/uL (4.2-6.2); RED CELL DISTRIBUTION WIDTH 14.4 % (9.0-15.0); WHITE BLOOD COUNT (AUTO) 12.2 K/uL (4.8-10.8)
[2020-09-19 07:48] VITALS: BP_SYST 137
--- NOTE | 2020-09-19 07:48 | NUR ---
INITIAL ROUNDS Received pt AAOx1-2, pt pleasantly confused and restless. Restraints removed while doing assessment and pt promptly removed her Oxymizer and tried to remove her pulse ox from her finger. Pt redirected to leave her stuff on, pt just smiled and removed her oxygen again. No s/s resp distress, no c/o pain or discomfort. Pt on Airborne and droplet isolation precautions for Covid 19+. Side rails up x3, bed alarm on, room across from nursing station for safety.
[2020-09-19 07:56] LABS: ALANINE AMINOTRANSFERASE 118 U/L (12-78); ANION GAP 13 (5-15); ASPARTATE AMINOTRANSFERASE 69 U/L (10-37); CALCIUM 8.8 mg/dL (8.4-11.0); CHLORIDE 101 mmol/L (98-107); CREATININE 0.81 mg/dL (0.55-1.30); GLUCOSE 118 mg/dL (70-99); POTASSIUM 3.8 mmol/L (3.5-5.1); SODIUM SERUM 135 mmol/L (136-145); TOTAL BILIRUBIN 0.4 mg/dL (0.0-1.0); UREA NITROGEN, BLOOD 16 mg/dL (8-21)
[2020-09-19] MEDS: ASCORBIC ACID 500 MG TABLET PO SCH ×2 (09:00→20:06)
[2020-09-19] MEDS: THEOPHYLLINE ANHYDROUS 200 MG TAB.SR.12H PO SCH ×2 (09:00→20:06)
[2020-09-19] MEDS: ENOXAPARIN SODIUM 40 MG/0.4 ML SYRINGE SUBCUT SCH ×2 (11:05→20:06)
--- NOTE | 2020-09-19 11:05 | NUR ---
ROUNDS Pt sitting up in bed with no s/s resp distress, no c/o pain or discomfort. New pulse ox placed-pt promptly removed hers when restaints removed. Pt voided, pt cleaned up and fresh gown, chux and linens placed. All precautions remain in place.
[2020-09-19] MEDS: OXYBUTYNIN CHLORIDE 5 MG TABLET PO SCH ×2 (11:10→20:06)
[2020-09-19] MEDS: MEMANTINE HCL 5 MG TABLET PO SCH ×2 (11:10→20:06)
[2020-09-19] MEDS: FOLIC ACID 1 MG TABLET PO SCH (11:10)
[2020-09-19] MEDS: LOSARTAN POTASSIUM 50 MG TABLET (COZAAR) PO SCH (11:11)
[2020-09-19] MEDS: CHOLECALCIFEROL (VITAMIN D3) 2,000 UNIT TABLET PO SCH (11:11)
[2020-09-19] MEDS: FLUoxetine HCL 10 MG CAPSULE (PROzac) PO SCH (11:12)
[2020-09-19] MEDS: DEXAMETHASONE SOD PHOSPHATE 4 MG/ML VIAL IVP SCH (11:13)
[2020-09-19] MEDS: DOCUSATE SODIUM 100 MG/10 ML UDC PO SCH (11:13)
--- NOTE | 2020-09-19 13:05 | NUR ---
RESTRAINTS D/C'D Restraints removed, pt instructed not to pull off her oxygen and pulse ox-pt stated "okay".
--- NOTE | 2020-09-19 16:05 | NUR ---
ROUNDS Pt sitting up in bed watching the television and reading out loud whatever she can read on the television and wall. Pt remains pleasantly confused, pt removed her oxygen and SAO2 95% on room air, no s/s resp distress, no c/o pain or discomfort. All precautions remain in place.
[2020-09-19 16:15] VITALS: BP_SYST 132
--- NOTE | 2020-09-19 19:00 | NUR ---
CLOSING NOTE Pt resting quietly in bed with no s/s resp distress, no c/o pain or discomfort. Pt remains pleasantly confused. Airborne and droplet precautions maintained throughout shift. All precautions remain in place. Call light within reach.
--- NOTE | 2020-09-19 19:30 | NUR ---
REPORT Received report from day nurse, patient lying in bed, on 02 2L NC, sinus rhythm showing in the monitor. Fall and isolation precautions in place.
[2020-09-19 20:03] VITALS: BP_SYST 162
--- NOTE | 2020-09-19 21:13 | NUR ---
RN ROUNDS Patient awake, pleasantly confused, lying in bed, in no distress, remains on 02 2L NC, o2 saturation of 93%, patient able to take medications, swallow precautions maintained. Fall and isolation precautions in place.
--- NOTE | 2020-09-19 22:30 | NUR ---
RN ROUNDS/MD Patient resting quietly, in no distress, remains on 02 2L NC, Dr. Paz and Dr. Méndez made rounds, updated them on patients status, no new orders at this time.
[2020-09-19] MEDS: DOXYCYCLINE HYCLATE 100 MG CAPSULE PO SCH (22:54)
[2020-09-20 00:07] VITALS: BP_SYST 102
--- NOTE | 2020-09-20 00:26 | NUR ---
RN ROUNDS Patient awake, watching tv, remains on 02 2L NC, vital signs stable, helped reposition for comfort, fall and isolation precautions in place.
[2020-09-20] MEDS: cefTRIAXone 1 GM IVPB PREMIX 50 ML IV SCH (01:40)
--- NOTE | 2020-09-20 02:05 | NUR ---
RN ROUNDS Patient resting quietly, remains on 02 2L NC, hygiene care provided, repositioned for comfort, fall and isolation precautions in place.
--- NOTE | 2020-09-20 04:11 | NUR ---
RN ROUNDS Patient awake, watching tv, remains on 02 2L NC, no facial grimacing noted for pain, helped reposition for comfort, fall and isolation precautions in place.
--- NOTE | 2020-09-20 06:27 | NUR ---
RN ROUNDS Patient resting quietly in bed, breathins is even and unlabored, no facial grimacing noted for pain, IV line remains intact and patent, helped reposition for comfort, fall and isolation precautions maintained through out the shift, will continue to monitor until report given to am nurse.
[2020-09-20 08:00] VITALS: BP_SYST 99
--- NOTE | 2020-09-20 08:00 | NUR ---
Note Pt was assisted in sitting up in bed to eat her breakfast. No SOB/resp distress or pain/discomfort noted at this time. Tele unit attached and intact at this time. IV in LAC intact and patent at this time. Pt is confused and is cooperative at this time. Pt denies any needs at this time. Pt pulls her nasal cannula off and on all the time. Call light within reach.
[2020-09-20] MEDS: LOSARTAN POTASSIUM 50 MG TABLET (COZAAR) PO SCH (08:39)
[2020-09-20] MEDS: DEXAMETHASONE SOD PHOSPHATE 4 MG/ML VIAL IVP SCH (08:47)
[2020-09-20] MEDS: DOCUSATE SODIUM 100 MG/10 ML UDC PO SCH (08:47)
[2020-09-20] MEDS: MEMANTINE HCL 5 MG TABLET PO SCH ×2 (08:48→22:06)
[2020-09-20] MEDS: THEOPHYLLINE ANHYDROUS 200 MG TAB.SR.12H PO SCH ×2 (08:48→22:06)
[2020-09-20] MEDS: ASCORBIC ACID 500 MG TABLET PO SCH ×2 (08:48→22:06)
[2020-09-20] MEDS: FOLIC ACID 1 MG TABLET PO SCH (08:49)
[2020-09-20] MEDS: OXYBUTYNIN CHLORIDE 5 MG TABLET PO SCH ×2 (08:49→22:06)
[2020-09-20] MEDS: CHOLECALCIFEROL (VITAMIN D3) 2,000 UNIT TABLET PO SCH (08:50)
[2020-09-20] MEDS: DOXYCYCLINE HYCLATE 100 MG CAPSULE PO SCH ×2 (08:54→22:06)
[2020-09-20] MEDS: FLUoxetine HCL 10 MG CAPSULE (PROzac) PO SCH (08:54)
[2020-09-20] MEDS: ENOXAPARIN SODIUM 40 MG/0.4 ML SYRINGE SUBCUT SCH ×2 (09:10→22:06)
[2020-09-20 12:00] VITALS: BP_SYST 132
--- NOTE | 2020-09-20 12:00 | NUR ---
Note Pt sitting up in bed eating her lunch - denies any needs at this time. Call light within reach. Spoke to pt's daughter Jaclyn Saldivar at 1105am and update was given. Consent received from pt's daughter Jaclyn Saldivar (POA) for Convalescent Plasma.
--- NOTE | 2020-09-20 15:10 | NUR ---
Note Pt was assisted in log rolling in bed for abdominal discomfort. Pt was given Dulcolax suppository as requested at this time. Pt states she has chronic constipation at home. Pt now resting with covers over her head for comfort. Denies any needs at this time. Call light within reach. Call light within reach. Addendum: 09/20/20 at 1527 by Alla Coates RN charted on wrong pt.
--- NOTE | 2020-09-20 15:25 | NUR ---
Note Pt was given frequent hygiene care for urine incontinence, and bed linens changed. Pt resting in bed and denies any needs at this time. Call light within reach.
--- NOTE | 2020-09-20 15:31 | NUR ---
Dietitian Recommendations *Recommend continue Mechanical Soft Diet *Recommend add: Glucerna BID to provide additional 440 kcal, 20 protein to promote PO intake while providing glycemic control Please see Nutrition Assessment for details. MARLEYRD
[2020-09-20 16:00] VITALS: BP_SYST 128
--- NOTE | 2020-09-20 16:11 | NUR ---
Spoke w/ automotive parts coordinator at [facility] she stated they will take covid patients in their yellow zone 20 days after they initially tested positive.
--- NOTE | 2020-09-20 19:00 | NUR ---
Note Pt sitting up in bed eating her dinner. Dr Paz on the floor to assess pt at 1800. No SOB/resp distress or pain/discomfort noted at this time. Pt was checked on q1' and PRN all shift for needs and care. Pt was maintained with safety and isolation precautions all shift. Pt's tele was dc'd and returned to security monitor. Pt stable. Pt bed in low position and bed alarm on all shift. Call joel lloyd. Addendum: 09/20/20 at 1935 by Alla Coates RN 1500 - tele dc'd
--- NOTE | 2020-09-20 19:42 | NUR ---
Initial note: Received report from dayshift RN. Patient is awake in bed watching TV. No acute distress. Tolerating room air, even and unlabored breathing. Left AC IV site patent and intact, saline locked. Call light with patient. Safety, fall, COVID iso precautions in place. Will continue with plan of care.
[2020-09-20 20:00] VITALS: BP_SYST 122
--- NOTE | 2020-09-20 21:20 | NUR ---
Blood bank: Called blood bank at this time to inquire regarding status of ordered convalescent plasma x1. Per blood bank, no transfusion record form has been submitted. Will provide transfusion record and copies of consent forms.
--- NOTE | 2020-09-20 21:45 | NUR ---
Consent obtained: Blood transfusion consent form completed during dayshift with 2 RN witness. Obtained consent at this time for convalescent plasma from patient's daughter/POA Jaclyn Saldivar over telephone with 2 RN witness. Completed consent form filed in paper chart.
--- NOTE | 2020-09-20 23:30 | NUR ---
CONV PLASMA INITIATION: Consent signed per patient's daughter/POA Jaclyn Saldivar agreeing to administration of blood. Blood has been type and crossmatched. Blood sent from blood bank. Information on unit of blood checked against patient wristband at bedside by two nurses. All information matches. Patient or responsible libertarian informed of potential complications associated with blood transfusion. Informed of possible transfusion reaction symptoms. Aware of need to notify nurse at once of itching, shortness of breath, flushing, feeling of impending doom, or other symptoms not previously present. Vital signs taken within 5 minutes prior to initiation of transfusion. RN will remain with patient for first 15 minutes of transfusion at which time vital signs will be re-assessed.
[2020-09-21 00:30] VITALS: BP_SYST 140
--- NOTE | 2020-09-21 00:30 | NUR ---
CONV PLASMA COMPLETE: Transfusion of convalescent plasma completed. Patient tolerated well, no acute distress, VSS. No adverse reactions throughout transfusion. Will continue monitoring.
[2020-09-21] MEDS: cefTRIAXone 1 GM IVPB PREMIX 50 ML IV SCH (02:36)
--- NOTE | 2020-09-21 03:24 | NUR ---
Sleeping: Patient is resting comfortably in bed, no acute distress, even and unlabored breathing on room air. IV site benign and intact. Call light with patient. Will continue to monitor.
--- NOTE | 2020-09-21 06:33 | NUR ---
Closing note: Patient is asleep in bed. No acute distress. Tolerating room air, even and unlabored breathing. IV site benign and intact. All needs met. Call light with patient. Safety, fall, COVID iso precautions in place. Will endorse care to dayshift RN.
[2020-09-21 08:00] VITALS: BP_SYST 130
--- NOTE | 2020-09-21 08:00 | NUR ---
Note Pt assisted in sitting up in bed to eat her breakfast. No SOB/resp distress or pain/discomfort noted at this time. Pt was seen by Dr Haro at this time as well. IV in left AC intact and patent at this time. No needs noted at this time. Call light within reach.
[2020-09-21] MEDS: DOCUSATE SODIUM 100 MG/10 ML UDC PO SCH (09:32)
[2020-09-21] MEDS: DEXAMETHASONE SOD PHOSPHATE 4 MG/ML VIAL IVP SCH (09:32)
[2020-09-21] MEDS: THEOPHYLLINE ANHYDROUS 200 MG TAB.SR.12H PO SCH ×2 (09:33→20:37)
[2020-09-21] MEDS: MEMANTINE HCL 5 MG TABLET PO SCH ×2 (09:33→20:37)
[2020-09-21] MEDS: FOLIC ACID 1 MG TABLET PO SCH (09:33)
[2020-09-21] MEDS: ASCORBIC ACID 500 MG TABLET PO SCH ×2 (09:34→20:37)
[2020-09-21] MEDS: CHOLECALCIFEROL (VITAMIN D3) 2,000 UNIT TABLET PO SCH (09:34)
[2020-09-21] MEDS: FLUoxetine HCL 10 MG CAPSULE (PROzac) PO SCH (09:35)
[2020-09-21] MEDS: OXYBUTYNIN CHLORIDE 5 MG TABLET PO SCH ×2 (09:35→20:37)
[2020-09-21] MEDS: LOSARTAN POTASSIUM 50 MG TABLET (COZAAR) PO SCH (09:37)
[2020-09-21] MEDS: DOXYCYCLINE HYCLATE 100 MG CAPSULE PO SCH ×2 (09:38→21:19)
[2020-09-21] MEDS: ENOXAPARIN SODIUM 40 MG/0.4 ML SYRINGE SUBCUT SCH ×2 (09:39→21:19)
[2020-09-21 12:00] VITALS: BP_SYST 139
--- NOTE | 2020-09-21 12:00 | NUR ---
Note Dr Adam on the floor to assess pt and check labs/tests at this time. Pt sitting up in bed eating her lunch at this time. No needs noted at this time. Call light within reach.
[2020-09-21 16:33] VITALS: BP_SYST 133
--- NOTE | 2020-09-21 18:25 | NUR ---
Note Pt sitting up in bed eating her dinner. Pt denies any needs at this time. Dr Paz was on the floor at 1745 to assess pt and check labs/tests at this time. Pt was checked on q1' and PRN all shift for needs and care. Pt was maintained with safety and isolation precautions all shift. Pt was given hygiene care all shift for urine incontinence. Pt denies any SOB/resp distress or pain/discomfort noted at this time. Pt has been next to nurses' station all shift for close observation. IV in left AC intact and patent at this time. Call light within reach. Pt's bed in low position and bed alarm on all shift.
--- NOTE | 2020-09-21 19:35 | NUR ---
ROUNDS PATIENT AWAKE, CONFUSED, ON ROOM AIR, VITALS STABLE, WATCHING TV AT THIS TIME. NO PAIN AND DISCOMFORT AT THIS TIME. ASSESSMENT DONE AND DOCUEMNTED. SEE FLOWSHEET. NEEDS ATTENDED TO. BED IN LOW AND LOCKED POSITION. CALL LIGHT PLACED WITHIN REACH.
[2020-09-21 20:00] VITALS: BP_SYST 141
--- NOTE | 2020-09-21 21:10 | NUR ---
MEDICATIONS DUE MEDICATIONS GIVEN ORDERED, TOLERATED WELL. WILL CONTINUE TO MONITOR.
[2020-09-22] VITALS: BP_SYST 139
--- NOTE | 2020-09-22 00:15 | NUR ---
PATIENT RESTING: Patient resting quietly. No acute distress noted. Vital signs within normal range.
[2020-09-22] MEDS: cefTRIAXone 1 GM IVPB PREMIX 50 ML IV SCH (02:35)
--- NOTE | 2020-09-22 03:20 | NUR ---
ROUNDS PATIENT AWAKE, VITALS STABLE, IV OUT AND REINSERTED ON THE LEFT FOREARM G. 22. NEEDS ATTENDED TO. WILL CONTINUE TO MONITOR.
--- NOTE | 2020-09-22 07:10 | NUR ---
OPENING NOTE RECEIVED SBAR FROM NIGHT RN, PATIENT IN BED, RESPIRATIONS EVEN, NON LABORED, BED IN LOW AND LOCKED POSITION, CALL LIGHT WITHIN REACH
[2020-09-22 08:00] VITALS: BP_SYST 128
--- NOTE | 2020-09-22 08:00 | NUR ---
NURSE NOTE OBTAINED VS, PATIENT INCONTINENT OF BLADDER, PROVIDED AMIE CARE AND CHG BATH, CHANGED LINENS AND GOWN, REPOSITIONED PATIENT, PROVIDED PATIENT WITH BREAKFAST, BED IN LOW AND LOCKED POSITION, CALL LIGHT WITHIN REACH, BED ALARM ON
[2020-09-22 09:13] LABS: BASOPHILS # (AUTO) 0.1 K/uL (0.0-0.2); BASOPHILS % (AUTO) 0.9 % (0.0-2.0); EOSINOPHILS # (AUTO) 0.1 K/uL (0.0-0.4); EOSINOPHILS % (AUTO) 0.4 % (0.0-4.0); HEMATOCRIT 39.3 % (36-48); HEMOGLOBIN 13.2 g/dL (12.0-16.0); LYMPHOCYTES # (AUTO) 3.7 K/uL (1.0-5.5); LYMPHOCYTES % (AUTO) 24.8 % (20.5-51.5); MEAN CORPUSCULAR HEMOGLOBIN 27 pg (27-31); MEAN CORPUSCULAR HGB CONC 34 % (32-36); MEAN CORPUSCULAR VOLUME 81 fL (79.0-98.0); MONOCYTES # (AUTO) 1.5 K/uL (0.0-1.0); MONOCYTES % (AUTO) 10.2 % (1.7-9.3); NEUTROPHILS # (AUTO) 9.4 K/uL (1.8-7.7); NEUTROPHILS % (AUTO) 63.7 % (40.0-70.0); PLATELET COUNT (AUTO) 371 K/uL (130-430); RED BLOOD CELL COUNT(AUTO) 4.84 MIL/uL (4.2-6.2); WHITE BLOOD COUNT (AUTO) 14.8 K/uL (4.8-10.8)
[2020-09-22] MEDS: DOCUSATE SODIUM 100 MG/10 ML UDC PO SCH (09:57)
[2020-09-22] MEDS: DEXAMETHASONE SOD PHOSPHATE 4 MG/ML VIAL IVP SCH (09:57)
[2020-09-22] MEDS: LOSARTAN POTASSIUM 50 MG TABLET (COZAAR) PO SCH (09:58)
[2020-09-22] MEDS: FOLIC ACID 1 MG TABLET PO SCH (09:58)
[2020-09-22] MEDS: CHOLECALCIFEROL (VITAMIN D3) 2,000 UNIT TABLET PO SCH (09:58)
[2020-09-22] MEDS: DOXYCYCLINE HYCLATE 100 MG CAPSULE PO SCH (09:58)
[2020-09-22] MEDS: OXYBUTYNIN CHLORIDE 5 MG TABLET PO SCH (09:58)
[2020-09-22] MEDS: MEMANTINE HCL 5 MG TABLET PO SCH (09:58)
[2020-09-22] MEDS: ASCORBIC ACID 500 MG TABLET PO SCH (09:58)
[2020-09-22] MEDS: FLUoxetine HCL 10 MG CAPSULE (PROzac) PO SCH (09:58)
[2020-09-22] MEDS ORDERED: THEOPHYLLINE ANHYDROUS 200 MG TAB.SR.12H PO ONE (10:00)
--- NOTE | 2020-09-22 10:00 | NUR ---
NURSE NOTE PATIENT IN BED RESPIRATIONS EVEN, NON LABORED, BED IN LOW AND LOCKED POSITION CALL LIGHT WITHIN REACH. BED ALARM ON
[2020-09-22] MEDS: ENOXAPARIN SODIUM 40 MG/0.4 ML SYRINGE SUBCUT SCH (10:02)
[2020-09-22 12:00] VITALS: BP_SYST 120
--- NOTE | 2020-09-22 12:00 | NUR ---
NURSE NOTE OBTAINED VS, PATIENT INCONTINENT OF BLADDER, PROVIDED AMIE CARE, CHANGED LINENS, PROVIDED LUNCH, BED IN LOW AND LOCKED POSITION CALL LIGHT WITHIN REACH, BED ALARM ON
--- NOTE | 2020-09-22 14:14 | NUR ---
NURSE NOTE PATIENT INCONTINENT OF BLADDER AND BOWEL, PROVIDED AMIE CARE, CHANGED LINENS, BED IN LOW AND LOCKED POSITION, CALL LIGHT WITHIN REACH, BED ALARM ON, PATIENT DENIES ANY PAIN OR DISCOMFORT
--- NOTE | 2020-09-22 15:14 | NUR ---
Patient accepted at [facility] room 8-Number for report [phone]. Will need final dc from Dr warner, please request Decadron be changed to p.o. before transfer. [facility] ambulance is on will call
[2020-09-22 15:59] VITALS: BP_SYST 122
--- NOTE | 2020-09-22 16:09 | NUR ---
NURSE NOTE PATIENT INCONTINENT OF BLADDER, PROVIDED MAIE CARE, CHANGED LINENS, OBTAINED VS, PATIENT IN BED, RESPIRATIONS EVEN, NON LABORED, BED IN LOW AND LOCKED POSITION, CALL LIGHT WITHIN REACH, BED ALARM ON.
--- NOTE | 2020-09-22 16:15 | NUR ---
NURSE NOTE INFORMED DR SANTAMARIA THAT PATIENT HAS BEEN ACCEPTED TO [facility], NEW ORDERS RECEIVED
--- NOTE | 2020-09-22 16:29 | NUR ---
DC Planning Received a call from [facility]. They cannot accept patient tonight unless meds switched to PO. Spoke with Maryanne CLARK. She is aware and meds are being switched. Phoned [facility], , and spoke with Erin to notify her of above. They are ready to accept patient.
[2020-09-22 16:38] VITALS: BP_SYST 126
--- NOTE | 2020-09-22 17:06 | NUR ---
AMBULANCE ARRANGEMENT MADE CALLED [facility] AT [phone] SPOKE WITH RIVER FOR A CHILD SPECIALIST TIME FOR 1999.
--- NOTE | 2020-09-22 17:25 | NUR ---
NURSE NOTE CALLED AND GAVE REPORT TO SHEY AT [facility], INFORMED DAUGHTER MARGARITO THAT PATIENT WOULD BE TRANSFERRED TO [facility], DAUGHTER VERBALIZED UNDERSTANDING AND AGREED TO TRANSFER
--- NOTE | 2020-09-22 18:31 | NUR ---
NURSE NOTE PATIENT IN BED, EATING DINNER, BED IN LOW AND LOCKED POSITION, CALL LIGHT WITHIN REACH, BED ALARM ON
--- NOTE | 2020-09-22 19:39 | NUR ---
NURSE NOTE PATIENT INCONTINENT OF BLADDER, PROVIDED AMIE CARE, CHG BATH, AND CHANGED LINENS TO PINK. BED IN LOW AND LOCKED POSITION, CALL LIGHT WITHIN REACH, PT TRANSFERRED Report given to Carisa at [facility]. Transfer packet with Transfer Orders and Medication Reconciliation form given to EMT with report. Exitcare provided. [facility] ID band removed, replaced with ID band with pt's name and . IV catheter removed, intact and dressing applied, no active bleeding. All belongings sent with patient. Patient left floor via gurney escorted by EMT in no distress.
[2020-09-23] MEDS ORDERED: THEOPHYLLINE ANHYDROUS 200 MG TAB.SR.12H PO SCH (09:00)
[2020-09-23] MEDS ORDERED: DEXAMETHASONE SOD PHOSPHATE 10 MG/ML VIAL IVP SCH (09:00)
== END 2020-09-22 19:50 | DRG 177 ==
LOC: SED 19:23 → STU 09-15 02:31 → SMU 09-20 23:21
PROVIDERS: ADMIT Family Medicine; ATTEND Family Medicine
PROC: XW13325 Transfusion of Convalescent Plasma (Nonautologous) into Peripheral Vein, Percutaneous Approach, New Technology Group 5 (ICD-10-PCS; principal; 2020-09-20)
DX: U07.1 COVID-19 (principal); G93.41 Metabolic encephalopathy; J12.89 Other viral pneumonia; N39.0 Urinary tract infection, site not specified; B96.20 Unspecified Escherichia coli [E. coli] as the cause of diseases classified elsewhere; E11.9 Type 2 diabetes mellitus without complications; G30.9 Alzheimer's disease, unspecified; F02.80 Dementia in other diseases classified elsewhere, unspecified severity, without behavioral disturbance, psychotic disturbance, mood disturbance, and anxiety; I10 Essential (primary) hypertension; R09.02 Hypoxemia; Z66 Do not resuscitate; F32.9 Major depressive disorder, single episode, unspecified; R00.1 Bradycardia, unspecified; Z86.73 Personal history of transient ischemic attack (TIA), and cerebral infarction without residual deficits
CPT/HCPCS: 36415; 36600; 71045; 80053; 81000-TC; 82728; 82803-TC; 83605; 83615-TC; 83880; 84484; 85025; 85379; 85384-TC; 86140; 86710; 86886; 86900; 86901; 87040-TC; 87081; 87086; 93005; 96365; 96367; 99285; G0378; J0360; J0456; J0696; J1100; J1650; J3480; P9017; U0003